=== PATIENT | male | born 1955 | race Caucasian/White ===

== ENCOUNTER 2020-03-25 10:18 | Emergency (ER) | payer SELFPAY ==
[2020-03-25 11:01] LABS: #Basophils 0.1 thou/uL (0.0-0.2); #Eosinphils 0.4 thou/uL (0.0-0.7); #Lymphocytes 2.3 thou/uL (1.20-3.40); #Monocytes 0.6 thou/uL (0.11-0.59); #Neutrophils 5.8 thou/uL (1.40-6.50); %Basophils 0.9 % (0.0-1.0); %Eosinophils 4.6 % (0.0-10.0); %Monocytes 6.3 % (0.0-10.0); %Neutrophils 63.2 % (42.0-75.0); Hemoglobin 14.1 g/dL (14.0-18.0); Mean Corpuscular HGB CONC 32.3 g/dL (32.0-36.0); Mean Corpuscular Volume 99.1 fL (78.0-98.0); Mean Platelet Volume 8.2 fL (7.4-10.4); Platelet Count 152 thou/uL (130-400); RBC Distribution Width 11.6 % (11.5-14.5); Red Blood Cell (RBC) Count 4.39 mill/uL (4.70-6.10); White Blood Cell (WBC) Count 9.2 thou/uL (4.8-10.8)
[2020-03-25] MEDS ORDERED: Aspirin Chewable 81 MG TAB ONE (11:01)
[2020-03-25 11:04] LABS: INR-International Normal Ratio 0.9; PTT 30.7 sec (22.9-36.1); Prothrombin Time 12.5 sec (12.0-14.7)
[2020-03-25 11:15] LABS: ALT (SGPT) 37 U/L (8-55); AST (SGOT) 32 U/L (5-34); Albumin 3.9 g/dL (3.4-4.8); Alkaline Phosphatase 88 U/L (40-110); Anion Gap 13 mmol/L (10-20); BUN (Urea Nitrogen) 34 mg/dL (8.4-25.7); Bilirubin, Total 0.5 mg/dL (0.2-1.2); Calc. Creatinine Clearance 0 mL/min (70-130); Calcium 9.2 mg/dL (7.8-10.44); Carbon Dioxide 24 mmol/L (23-31); Chloride 107 mmol/L (98-107); Estimated GFR-MDRD 89; Globulin 2.8 g/dL (2.4-3.5); Glucose 141 mg/dL (80-115); Protein, Total 6.7 g/dL (5.8-8.1); Sodium 140 mmol/L (136-145)
[2020-03-25] MEDS ORDERED: Heparin 5,000 UNITS/ML VIAL ONE (12:15)
[2020-03-25] MEDS ORDERED: Iopamidol 370 76% 100 ML VIAL ONE (13:13)
--- NOTE | 2020-03-25 17:13 | CT ---
CT ANGIO OF THE RIGHT LOWER EXTREMITY: Date: 03-25-[address] of the right lower extremity was done for evaluation of symptoms of claudication and a cyanotic foot. Axial slices were acquired followed by multiplanar reconstructions. FINDINGS: There is normal filling of the iliac arterial system, profunda femoris and proximal portions of the f emoral artery. In the distal superficial femoral artery at the level of about the adductor canal, con trast abruptly stops and is not seen below that level. There is lucency in the lumen of the distal SF A suggesting that this may be clot. The popliteal artery does enlarge somewhat in size, being up to 1 .5 cm in diameter. Still, little or no contrast is seen in the arteries immediately below that level. IMPRESSION: Evidence of arterial obstruction at the level of the distal SFA in the vicinity of Vidal's canal wit h little to no flow below this point. Preliminary findings discussed with Dr. Hare at 12:07 on 03-25-2020. POS: HOME
== END 2020-03-25 13:02 | disposition short-term general hospital (02) ==
LOC: BURERS 10:18
DX: I74.3 Embolism and thrombosis of arteries of the lower extremities (principal); F17.210 Nicotine dependence, cigarettes, uncomplicated; I48.91 Unspecified atrial fibrillation
CPT/HCPCS: 36415; 80053; 83605; 85025; 85610; 85730; 93005; 96374; J1644; Q9967

== ENCOUNTER 2020-04-25 11:40 | Emergency (ER) | payer SELFPAY ==
[2020-04-25] MEDS ORDERED: Cephalexin 250 MG CAP ONE (12:02)
== END 2020-04-25 12:11 | disposition home or self-care (01) ==
LOC: BURERS 11:40
DX: T81.30XA Disruption of wound, unspecified, initial encounter (principal); I48.91 Unspecified atrial fibrillation; F17.210 Nicotine dependence, cigarettes, uncomplicated; Z79.82 Long term (current) use of aspirin
CPT/HCPCS: 99283